=== PATIENT | male | born 1960 ===

== ENCOUNTER → 2016-09-26 | Outpatient (CLI) | payer BC ==
--- NOTE | 2016-09-26 17:08 | Diagnostic Imaging Report ---
Indication: Pain Comparison: None Findings: 3 views of the left foot were obtained. There is an acute intraarticular fracture involving the 2nd proximal phalange extending into the PIP joint. Exam is negative otherwise. Impression: Acute fracture 2nd proximal phalange.
--- NOTE | 2016-10-04 17:22 | Diagnostic Imaging Report ---
APPROVED REPORT CPT Code: 06969 Present Symptoms Comments: Pain and Swelling BILATERAL: Imaging reveals a patent deep venous system bilaterally. There is no evidence of thrombus within the femoral, popliteal or tibial segments. The greater saphenous veins are also within normal limits. Doppler indicates normal spontaneous flow within these segments.
== END | disposition home or self-care (01) ==
LOC: VAS 15:51
DX: S92.412A Displaced fracture of proximal phalanx of left great toe, initial encounter for closed fracture (principal); X58.XXXA Exposure to other specified factors, initial encounter; Y92.9 Unspecified place or not applicable
CPT/HCPCS: 93970

== ENCOUNTER → 2016-12-05 | Outpatient (CLI) | payer BC ==
--- NOTE | 2016-12-08 08:32 | Diagnostic Imaging Report ---
Indication: PAIN Technique: 2 views of the right hip Comparison: None Findings: Is a right hip hemiarthroplasty prosthesis in place. It appears well aligned. No worrisome periprosthetic lucency demonstrated. No definite acute fractures. No dislocations. Impression: Post surgical changes, as described. No acute bony trauma
== END | disposition home or self-care (01) ==
LOC: RAD 16:12
DX: M25.551 Pain in right hip (principal)

== ENCOUNTER 2017-04-20 12:27 | Outpatient (CLI) | payer BC ==
--- NOTE | 2017-04-20 15:40 | Diagnostic Imaging Report ---
Indication: Neck Pain Findings: 5 views of the cervical spine were obtained. Oblique view show no obvious foraminal stenosis though there is suggestion of uncovertebral spur formation and facet hypertrophy. Open-mouth view is negative. Despite multiple tries the lateral view is suboptimal. There is a motion related artifact narrowing of the C5-6 disc and C6-7 discs noted. No malalignment or fracture identified. Impression: Degenerative disc disease at C5-6 and C6-7. Mild multilevel facet arthropathy and uncovertebral spurring.
--- NOTE | 2017-04-22 08:48 | Diagnostic Imaging Report ---
Indication: PAIN Technique: 3 views left hand Comparison: none Findings: No acute fractures. No dislocations. Joint spaces are preserved. Impression: Negative
== END 2017-04-20 14:27 | disposition home or self-care (01) ==
LOC: RAD 12:27
DX: M50.322 Other cervical disc degeneration at C5-C6 level (principal); M50.323 Other cervical disc degeneration at C6-C7 level
CPT/HCPCS: 72052

== ENCOUNTER 2018-04-07 16:00 | Outpatient (CLI) | payer BC ==
--- NOTE | 2018-04-07 16:40 | Diagnostic Imaging Report ---
Indications: Neck pain Technique: Four views of the cervical spine Comparison: None Findings:Bony alignment is normal. No prevertebral soft tissue swelling. Vertebral body heights are preserved. There is degenerative disc narrowing at C5-6 and C6-7. The remaining disc spaces are preserved. There is neural foraminal narrowing at C5-6 and C6-7 on the right, and minimally at C6-7 on the left. No acute fractures. No dislocations Impression: Degenerative changes, as described No acute bony trauma
== END 2018-04-07 18:00 | disposition home or self-care (01) ==
LOC: RAD 16:00
DX: M54.2 Cervicalgia (principal)
CPT/HCPCS: 72050